=== PATIENT | female | born 1990 | race Caucasian/White ===

== ENCOUNTER 2019-09-27 09:23 | Emergency (ER) | payer MEDICAID, SELFPAY ==
[2019-09-27] MEDS ORDERED: Bacitracin Oint 1 GM U/D Packet TOP ONE (10:55)
--- NOTE | 2019-09-27 11:00 | EDM.PDOC ---
ED HPI GENERAL MEDICAL PROBLEM - General Chief Complaint: Skin Complaint Stated Complaint: FISHHOOK BOTH HANDS Time Seen by Provider: 09/27/19 10:25 Source of Information: Reports: Patient, Family, RN Notes Reviewed History Limitations: Reports: No Limitations - History of Present Illness INITIAL COMMENTS - FREE TEXT/NARRATIVE: 29-year-old female presents emergency department today she has a fishhook lodged in digit #2 left hand as well as digit #1 right hand Bilateral Hand Pain Score (Numeric/FACES): 6 - Related Data Allergies Allergy/AdvReac Type Severity Reaction Status Date / Time No Known Allergies Allergy Verified 09/27/19 09:32 Home Meds: Home Meds Amphetamine/Dextroamphetamine [Adderall XR] 10 mg PO ASDIRECTED 09/27/19 [History] FLUoxetine HCl [Fluoxetine HCl] 20 mg PO ASDIRECTED 09/27/19 [History] LORazepam [Lorazepam] 0.5 mg PO ASDIRECTED 09/27/19 [History] Past Medical History Respiratory History: Reports: Asthma 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: Psychiatric History: Reports: ADHD, Anxiety, Depression Social & Family History - Tobacco Use Smoking Status *Q: Never Smoker - Caffeine Use Caffeine Use: Reports: Coffee, Energy Drinks - Recreational Drug Use Recreational Drug Type: Reports: Marijuana/Hashish ED ROS GENERAL - Review of Systems Review Of Systems: See Below Skin: Reports: Wound ED EXAM, SKIN/RASH Exam: See Below Text/Narrative:: [place] 3 barbed lodged in the distal aspect digit #2 left hand and proximal thumb digit #1 right hand Exam Limited By: No Limitations General Appearance: Alert, WD/WN, No Apparent Distress ED SKIN PROCEDURES - Additional/Other Procedure(s) Other (Free Text) Procedure(s): Preoperative diagnosis fishhook digit #2 left hand digit #1 right hand Postoperative diagnosis same Surgeon Wayne OfficerMD Verbal consent was obtained prior to procedure risks and benefits were discussed patient is in agreement and wishes to proceed. Anesthesia total of 4 cc lidocaine without epinephrine Estimated blood loss minimal Specimens 1 trouble hook removed Summary procedure: Timeout was performed prior to initiation procedure identified correct site, correct patient and correct procedure. Digital block was used in digit #2 left hand after cleansing the area with alcohol 1 cc lidocaine without epinephrine is injected along the distal PIP joint for adequate anesthesia local anesthesia was used with lidocaine on the trouble hook that is embedded in digit #1 on the right hand. After adequate anesthesia the fisherman's technique was used to remove both hooks hooks were initially with a plug wirer so the hands became free and each portion of the trouble hook was removed separately Complications none apparent Disposition Home wounds were cleansed dressed with bacitracin Course - Vital Signs Last Recorded V/S: Last Vital Signs Temp 96.8 F L 09/27/19 09:34 Pulse 67 09/27/19 09:34 Resp 16 09/27/19 09:34 BP 144/114 H 09/27/19 09:34 Pulse Ox 99 09/27/19 09:34 - Orders/Labs/Meds Orders: Active Orders 24 hr Category Date Time Status Bacitracin [Bacitracin Oint 1 GM] Med 09/27/19 10:55 Once 1 dose TOP ONETIME ONE Meds: Medications Discontinued Medications Generic Name Dose Route Start Last Admin Trade Name Freq PRN Reason Stop Dose Admin Lidocaine HCl 5 ml 09/27/19 10:26 09/27/19 10:42 Xylocaine-Mpf 1% INJECT 09/27/19 10:27 5 ml ONETIME ONE Administration Departure - Departure Time of Disposition: 11:00 Disposition: Home, Self-Care 01 Condition: Fair Clinical Impression: [place] injury to finger Qualifiers: Encounter type: initial encounter Laterality: unspecified laterality Qualified Code(s): S69.90XA - Unspecified injury of unspecified wrist, hand and finger(s), initial encounter - Discharge Information Referrals: PCP,None [Primary Care Provider] - Additional Instructions: Follow-up with primary care as needed Sepsis Event Note (ED) - Evaluation Sepsis Screening Result: No Definite Risk - Focused Exam Vital Signs: Vital Signs Temp Pulse Resp BP Pulse Ox 09/27/19 09:34 96.8 F L 67 16 144/114 H 99 09/27/19 09:33 96.8 F L 67 16 144/114 H 99 - My Orders Last 24 Hours: My Active Orders 09/27/19 10:55 Bacitracin [Bacitracin Oint 1 GM] 1 dose TOP ONETIME ONE - Assessment/Plan Last 24 Hours: My Active Orders 09/27/19 10:55 Bacitracin [Bacitracin Oint 1 GM] 1 dose TOP ONETIME ONE Plan: Assessment Acuity = acute Site and laterality = fishhook digit #2 left hand digit #1 right hand Etiology = Rappila Manifestations = none Location of injury = Home Lab values = none Plan Follow-up primary care as needed tetanus was addressed patient states she is up-to-date This note was dictated using [employer] recognition software please call with any questions on syntax or grammar.
== END 2019-09-27 11:12 | disposition home or self-care (01) ==
LOC: JP.ED 09:23
DX: S60.451A Superficial foreign body of left index finger, initial encounter (principal); S60.351A Superficial foreign body of right thumb, initial encounter; W45.8XXA Other foreign body or object entering through skin, initial encounter
CPT/HCPCS: 64450; 99282; J2001; 99283